=== PATIENT | female | born 1970 | race Caucasian/White ===

== ENCOUNTER 2021-10-27 09:47 | Day surgery (SDC) | payer OTHER, SELFPAY ==
--- NOTE | 2021-10-27 | PATH_ITS ---
[facility] Accession Number: [id number] . 01 Material submitted: . rectum - RECTUM BIOPSY . 02 Diagnosis: Rectum, Biopsy: Hyperplastic polyp. MRV 11/02/2021 1040 Local . 02 Electronically signed: . Modesta Sifuentes MD, Pathologist NPI- [id number] . 01 Gross description: . RECTUM BIOPSY: Received in formalin are 2 fragment(s) of ibanez, soft tissue measuring 0.2 x 0.2 x 0.1 cm to 0.2 x 0.1 x 0.1 cm submitted entirely in 1 cassette(s) /CPE 10/28/2021 0800 Local . 02 Pathologist provided ICD-10: K62.1 . 02 CPT . 730808 Performed at: 01 [facility] Cyt[facility] [address] [place] [address], [place], [place] [id number] MD Dany Winter MD Phone: [phone] Performed at: 02 [facility] [address] [place], [place] [id number] MD Modesta Sifuentes MD Phone: [phone]
[2021-10-27 10:08] VITALS: BP 157/100; PULSE 97; RESP 18; TEMP 36.3; O2SAT 99; BMI 41.5
[2021-10-27] MEDS: LACTATED RINGERS 1,000 ML 200 ML IV (10:22)
--- NOTE | 2021-10-27 10:56 | PM.HP.1 ---
History of Present Illness History of Present Illness Date Patient Seen: 10/27/21 Time Patient Seen: 10:56 Chief complaint: SDC Narrative: The patient presents for colorectal screening. She had a previous colonoscopy 20 years ago which was normal. No personal or family history of colon cancer. On further history denies any recent gastrointestinal symptoms. No nausea, vomiting, abdominal pain, loss of appetite, unexplained weight loss, change in bowel habits, diarrhea, constipation, melena, hematochezia, or bright red blood per rectum. Patient History Medical History Acid reflux Depression HTN (hypertension) Hx of fracture of tibia Hypercholesteremia Surgical History Hx of cystoscopy Hx of tonsillectomy Family & Social History Social History: household members spouse Tobacco & Substance use: Tobacco type cigars Smoking Status Former smoker alcohol intake current alcohol intake frequency a few times a week Substance Use Type marijuana Meds Home Medications and Allergies Home Medications Medication Instructions Recorded Confirmed Type hydrochlorothiazide 25 mg tablet 25 mg PO QDAY #0 04/13/17 10/27/21 History omeprazole 40 mg capsule,delayed 40 mg PO QAM #0 04/13/17 10/27/21 History release venlafaxine 75 mg capsule,extended 75 mg PO QDAY #0 04/13/17 10/27/21 History release 24 hr (Effexor XR) cholecalciferol (vitamin D3) 10 10 mcg PO DAILY 08/19/20 10/27/21 History mcg (400 unit) capsule losartan 25 mg tablet 25 mg PO DAILY 08/19/20 10/27/21 History multivitamin 1 tab PO DAILY 08/19/20 10/27/21 History vitamin B comp and C no.3 15 mg-10 1 cap PO DAILY 08/19/20 10/27/21 History mg-50 mg-5 mg-300 mg capsule (B Complex Plus Vitamin C) naproxen sodium 220 mg tablet 440 mg PO DAILY PRN 10/26/21 10/27/21 History (Aleve) Allergies Allergy/AdvReac Type Severity Reaction Status Date / Time meperidine [From DEMEROL] Allergy Mild Nausea Verified 10/27/21 10:01 Exam Vital Signs (past 8 hours): - 10/27/21 10:08 Temperature 97.4 F L Pulse Rate 97 H Respiratory Rate 18 Blood Pressure 157/100 H Pulse Oximetry 99 Oxygen Delivery Method Room Air Narrative Exam Narrative: GENERAL: Obese female in no apparent distress HEENT: No scleral icterus CV: Regular rate, no peripheral edema LUNGS: No increased work of breathing. Patient speaks in full sentences without oxygen support. ABDOMEN: Soft, non-tender, non-distended NEURO: Nonfocal, normal strength throughout, normal gait. SKIN: Warm and dry Assessment & Plan Assessment & Plan narrative: The patient requires colorectal screening and colonoscopy is recommended. Technical details were discussed. Risks, benefits, alternatives explained. Risks including but not limited to myocardial infarction, aspiration, bleeding, pain, missed lesion, incomplete examination, need for further radiographic studies, colonic perforation, and need for major abdominal surgery were discussed. All questions were answered to their satisfaction, and they are in agreement with this plan. Time Spent With Patient Critical Care time: I spent a total of [] minutes of critical care time on this patient's care today; this time is exclusive of procedural time.
[2021-10-27] MEDS: fentaNYL 250 MCG/5 ML INJ 150 MCG IV (11:05)
[2021-10-27] MEDS: MIDAZOLAM 5 MG/5 ML VIAL 8 MG IV (11:05)
--- NOTE | 2021-10-27 11:44 | P.OP.COLON_ITS ---
Operative Date/Time/Diagnoses Date of procedure: 10/27/21 Time of procedure: 11:44 Pre-op diagnosis: Screening Post-op diagnosis: same Procedure & Clinicians Study performed: Colonoscopy Same procedure as scheduled: Yes Indications: Screening Surgeon: Papo Santillan Procedure Notes Procedure in detail: Medications: Conscious sedation using 8mg IV midazolam and 150mcg IV of fentanyl The history and physical was performed/updated and the patient is ASA class is 2. The procedure was discussed in detail with the patient. Potential risks complications including infection, bleeding, missed diagnosis, perforation, need for surgery, and were explained. Their questions were answered and informed consent was obtained. Patient was brought to the procedure room and placed standard monitoring equipment. The patient's vital signs were monitored continuously throughout the entire procedure. Prior to starting time-out was performed. The patient was placed in the left lateral recumbent position. Procedural sedation was adminis tered. Examination began with a thorough inspection of the perianal area there was no evidence of fissures, fistulae, external hemorrhoids or cutaneous malignancy. The colonoscopy scope was then placed into the anal canal and was advanced to the cecum, which was identified by the ileocecal valve, the appendiceal orifice and the confluence of the taenia. The scope was then slowly withdrawn examining colon thoroughly in all directions, irrigating it of any residual stool. FINDINGS 1. Rectum 5 mm polyp removed biopsy forceps 2. Tortuous colon 3. Sigmoid diverticulosis The patient tolerated the procedure well. They will be discharged once criteria are met. The prep was of good/excellent quality. The withdrawl time was 9 minutes. The sedation time was 35 minutes. Specimen(s): other (Rectum) Complications: none Impression: Colonic polyp Post-procedure Recommendations: Will call with biopsy results Disposition: same day surgery
[2021-10-27 11:46] VITALS: BP 127/81; PULSE 79; RESP 13; TEMP 36.5; O2SAT 99
[2021-10-27 11:50] VITALS: BP 113/76; PULSE 79; RESP 13; O2SAT 97
[2021-10-27 11:55] VITALS: BP 131/80; PULSE 76; RESP 19; O2SAT 98
[2021-10-27 12:00] VITALS: BP 137/80; PULSE 80; RESP 14; O2SAT 97
[2021-10-27 12:04] VITALS: BP 122/75; PULSE 77; RESP 15; TEMP 36.7; O2SAT 99
== END 2021-10-27 12:19 | disposition home or self-care (01) ==
PROVIDERS: PCP Physician Assistant Medical; Referring Provider Surgery; Visit Provider Surgery
PROC: 0DJD8ZZ Inspection of Lower Intestinal Tract, Via Natural or Artificial Opening Endoscopic (ICD-10-PCS; CPT 45378; principal; 2021-10-27 10:30)
DX: Z12.11 Encounter for screening for malignant neoplasm of colon (principal); I10 Essential (primary) hypertension; K57.30 Diverticulosis of large intestine without perforation or abscess without bleeding; K62.1 Rectal polyp
CPT/HCPCS: 45380; 81025; 99152; 99153; J2250; J3010

== ENCOUNTER → 2022-03-12 07:37 | Outpatient (CLI) | payer OTHER, SELFPAY ==
--- NOTE | 2022-03-12 07:39 | DI.MRI.S_ITS ---
PROCEDURE: MR LUMBAR SPINE WO CON INDICATIONS: Pain in right hip TECHNIQUE: Noncontrast sagittal T1 spin echo and T2 fast echo, sagittal STIR, and T2 fast spin echo through the lumbar spine. In cases with scoliosis, additional coronal T2 fast spin echo may be performed. COMPARISON: [facility], CR, L-SPINE 2-3 VIEWS, 09/05/2008, 12:09. FINDINGS: Image quality: Excellent. Alignment and Curvature: There is normal bony alignment. Bone Marrow: Marrow is of normal overall signal. No acute vertebral body compression fractures. Spinal Cord: Conus medullaris terminates at the L1-L2 level. Visualized cord demonstrates normal signal and size. Paraspinous Soft Tissues: No paravertebral masses. T12-L1: No canal stenosis or foraminal stenosis. L1-L2: Minimal right paracentral disc protrusion. No canal stenosis or foraminal stenosis. Mild facet hypertrophy. L2-L3: Moderate broad-based right paracentral disc protrusion with small associated minimally superior disc extrusion, with disc material measuring approximately 1.3 x 1.4 x 0.6 cm. There is indentation on the thecal sac and impingement on right-sided nerve root structures, most notably the right L3 nerve root. There is bilateral facet arthropathy. There is moderate central canal stenosis. L3-L4: Very minimal disc bulge. Bilateral facet hypertrophy, right greater than left. No canal stenosis or foraminal stenosis. L4-L5: Minimal disc bulge. Prominent bilateral facet hypertrophy. Epidural lipomatosis. Mild canal stenosis. No foraminal stenosis. L5-S1: Prominent bilateral facet hypertrophy. Very minimal disc bulge. No canal stenosis or foraminal stenosis. IMPRESSION: 1. Underlying multilevel facet arthropathy. 2. The most significant findings are at L2-L3. There is a moderate broad-based right paracentral disc protrusion with associated small superior disc extrusion. There is impingement on right-sided nerve root structures, most notably the right L3 nerve root. There is moderate central canal stenosis. 3. There is mild canal stenosis at L4-L5. Dictated by: Shaheen Hook M.D. on 03/12/2022 at 9:27 Approved by: Shaheen Hook M.D. on 03/12/2022 at 9:34
== END ==
PROVIDERS: PCP Physician Assistant Medical; Referring Provider Orthopaedic Surgery; Visit Provider Orthopaedic Surgery
DX: M25.551 Pain in right hip (principal); M47.896 Other spondylosis, lumbar region; M48.061 Spinal stenosis, lumbar region without neurogenic claudication; M51.26 Other intervertebral disc displacement, lumbar region
CPT/HCPCS: 72148

== ENCOUNTER → 2022-06-22 11:33 | Outpatient (CLI) | payer OTHER, SELFPAY ==
--- NOTE | 2022-06-22 | DI.RAD.S_ITS ---
PROCEDURE: XR LUMBAR SPINE MIN 4V INDICATIONS: spondylolisthesis lumbar region TECHNIQUE: 5 views of the lumbar spine acquired, including flexion and extension views. COMPARISON: None. FINDINGS: Bones: 5 nonrib-bearing vertebrae are present. There is 4 millimeters of L2-L3 retrolisthesis. There is mild convex left thoracolumbar spine curvature. No vertebral body compression fractures. No suspicious bony lesions. Severe L2-L3 degenerative disc changes. Mild degenerative disc changes noted throughout the remainder of the lumbar spine. Moderate L3-L4, L4-L5 and L5-S1 facet arthropathy. Mild L2-L3 facet arthropathy. Soft tissues: Overlying bowel gas pattern is normal. No suspicious soft tissue calcifications. Flexion/extension: There is limited range of motion, with preserved normal alignment. IMPRESSION: 1. Multilevel degenerative disc disease. 2. Multilevel facet arthropathy. 3. No fracture. No acute osseous lesion. If symptoms and/or clinical suspicion for pathology persists, evaluation with MRI should be considered for further assessment. 4. Grade 1 L2-L3 degenerative spondylolisthesis. Dictated by: Keena Ortiz MD, PhD on 06/22/2022 at 13:33 Approved by: Keena Ortiz MD, PhD on 06/22/2022 at 13:35
== END ==
PROVIDERS: PCP Physician Assistant Medical; Referring Provider Orthopaedic Surgery Orthopaedic Surgery of the Spine; Visit Provider Orthopaedic Surgery Orthopaedic Surgery of the Spine
DX: M43.16 Spondylolisthesis, lumbar region (principal); M51.16 Intervertebral disc disorders with radiculopathy, lumbar region; M47.26 Other spondylosis with radiculopathy, lumbar region; M47.27 Other spondylosis with radiculopathy, lumbosacral region; M41.9 Scoliosis, unspecified
CPT/HCPCS: 72110

== ENCOUNTER 2022-09-06 10:44 | Inpatient (IN) | payer OTHER, SELFPAY ==
[2022-08-30 13:20] VITALS: BMI 40.3
[2022-09-06] VITALS (17 sets, daily range): BP systolic 90–143; BP diastolic 45–99; PULSE 89–108; RESP 12–108; TEMP 36–37.3; O2SAT 93–99; BMI 40.3
[2022-09-06 11:54] LABS: COVID19 -Nasal RAPID Negative (Negative)
--- NOTE | 2022-09-06 12:01 | PM.PREOP ---
Pre-operative Note COVID-19 COVID-19 status: Negative Result date/Date tested (Pos, Neg/Pending): 09/05/22 Criteria for continued procedure: Expected advancement of disease process, Possibility delay results in more complex future surgery or treatment, Increased loss of function, Continuing or worsening of significant or severe pain, Deterioration of the patient's condition or overall health and Delay expected to result in less-positive ultimate med/surg outcome Interval Note History & Physical reviewed/Exam performed by Physician: Yes Changes to H&P: No
[2022-09-06] MEDS: LACTATED RINGERS 1,000 ML 42 ML IV ×2 (12:19→13:26)
[2022-09-06] MEDS: CEFAZOLIN 3 GM IN 0.9 % NACL 3 GM/100 ML PLAST..BAG IV (12:30)
--- NOTE | 2022-09-06 13:00 | SUR.OPER ---
Prone on spine table, head in foam head support, padded chest and pelvic supports, gel pad at knees, lower legs supported by pillows; nipples, genitalia and toes free of pressure, arms secured on foam padded arm boards at <90 degrees abduction. Tape over blanket at thigh secured to table.
[2022-09-06] MEDS: BUPIVACAINE LIPOSOME 266 MG/20 ML VIAL INJ (13:08)
[2022-09-06] MEDS: BUPIVACAINE 0.25% (PF) 60 ML, EPINEPHrine 0.3 MG INJ (13:09)
--- NOTE | 2022-09-06 15:15 | DI.RAD.S_ITS ---
PROCEDURE: XR LUMBAR SPINE 2-3V INDICATIONS: L2-3 TLIF TECHNIQUE: 3 views of the lumbar spine were acquired. COMPARISON: [facility], [place], XR LUMBAR SPINE MIN 4V, 06/22/2022, 11:37. FINDINGS: Intraoperative images demonstrating presumed L2-3 fusion. There is good anatomic alignment. IMPRESSION: Intraoperative fusion as above. Dictated by: Audra Cedeño M.D. on 09/06/2022 at 16:57 Approved by: Audra Cedeño M.D. on 09/06/2022 at 16:58
--- NOTE | 2022-09-06 15:19 | PM.OP.1 ---
Operative Date/Time/Diagnoses Date of procedure: 09/06/22 Time of procedure: 13:00 Pre-op diagnosis: 1. L2-3 spinal stenosis 2. L2-3 disc herniation with radiculopathy Post-op diagnosis: same Procedure & Clinicians Procedure: 1. L2-3 Postero-lateral and posterior interbody fusion 2. L2-3 interbody cage placement. 3. L2-3 decompressive laminectomy with bilateral facetecomies 4. L2-3 Posterior non-segmental instrumentation 5. [place] of bone marrow from iliac crest 6. Utilization of microsurgical technique and operating microscope Same procedure as scheduled: Yes Indications: Patient has been having chronic back pain and worsening lumbar radiculopathy. Patient failed multiple conservative management with worsening pain weakness and numbness in her lower extremity. Patient has been having difficulty performing activity of daily living. After discussing risks benefits of treatment options, patient elected proceed with surgery. Surgeon: José Miguel Kebede Software Technician: Pranav Hoyt Click Yes if Unassisted: No Anesthesia Type: General Operative Notes Closure Type: primary Specimen(s): none sent Prosthetic devices, grafts, tissues, transplants, or devices: Globus revolve screws, Rise cage Estimated Blood Loss (mL): 100 Blood products transfused: none Procedure in detail: Patient was seen in the preoperative area. Risks and benefits of the surgery was discussed with the patient. Informed consent was obtained from the patient and placed in the chart. Surgical site was marked. Patient was taken to the operative room. General anesthesia was administered. Prophylactic antibiotic was given to the patient less than 30 min before the incision was made. Patient was placed into a prone position on the [place] table. Patient's back was then prepped and draped in the sterile fashion. Time-out was performed at this time. Using AP and lateral C-arm imaging the interval between L2-3 was identified and marked on patient's back. A 2 inch incision 2 in from midline was made on the right side first. The fascia was incised in line with skin incision. Globus MARS retractors was placed inside the incision and docked onto the L2 lamina. Using microsurgical technique and operating microscope, a L2 laminectomy and L2-3 facetectomy was performed using a Kerrison rongeur. The disc space at L2-3 was identified. And a total diskectomy was performed at L2-3 level. The endplates were decorticated using a rasp and shaver. The total diskectomy and decortication was performed at L2-3 level in order to to accomplish a L2-3 fusion. The local bone from the laminectomy and facetectomy was saved for local bone grafting. After the total diskectomy and decortication was completed, Trifecta bone graft material was combined with local bone that was harvested earlier. At this time, a separate skin is incision was made over the iliac crest. A Jamshidi needle was inserted into the iliac crest through a separate skin incision. 5 cc of bone marrow aspiration was obtained through the separate skin incision using a Jamshidi needle from the iliac crest. The bone marrow aspiration was combined with local bone and the Trifecta bone grafting material. The bone grafting material was placed into the L2-3 interbody space along with a expandable cage. The cage was expanded to its maximum height using the torque limiting screwdriver. At this time a mirror image incision was made on the left side. The fascia was incised in line with the skin incision. Globus MARS retractor was inserted and docked onto the L2-3 posterolateral gutter. Using the power drill, posterior-lateral decortication was performed at L2-3 level until bleeding cortical bone was identified. The remaining bone grafting material was placed into the L2-3 posterior lateral gutter he order to accomplish posterolateral fusion at the L2-3 level. Using the double C-arm technique, pedicle screws were placed into the L2-3 pedicles bilaterally. This was done by placing the Jamshidi needle into the pedicles, then placing the guidewires over the Jamshidi needle, and finally placing the cannulated screws over the guidewires bilaterally. After the pedicle screws were placed, 2 titanium rods was locked into the heads of the pedicle screws using locking caps and torque limiting screwdriver. After all the hardware was placed, and confirmed with AP and lateral C-arm imaging, the wound was then irrigated with sterile normal saline and packed with Ray-Tanya gauze for 3 min to accomplish hemostasis. After the gauze was removed the deep fascia was closed with #1 Vicryl suture. The subcutaneous layer was closed with 2-0 Vicryl. The skin was closed with skin rey. Patient tolerated the procedure well. There were no complications. Complications: none Post-operative Condition: stable Disposition: PACU Plan for aftercare: Admit to inpatient hospital
[2022-09-06] MEDS: HYDROCODONE/ACET 5/325 TABLET 1 TAB PO (15:58)
[2022-09-06] MEDS: LACTATED RINGERS 1,000 ML 40 ML IV (16:14)
[2022-09-06] MEDS: fentaNYL 100 MCG/2 ML INJ IV (16:16)
[2022-09-06] MEDS: SODIUM CHLORIDE 0.9% 1,000 ML 100 ML IV (17:07)
[2022-09-06] MEDS: OXYCODONE IR 5 MG TABLET 10 MG PO ×2 (17:43→23:03)
[2022-09-06] MEDS: CEFAZOLIN 2 GM/100 ML PREMIX 100 ML IV (19:29)
[2022-09-06] MEDS: VENLAFAXINE ER 75 MG CAP PO (20:16)
[2022-09-06] MEDS: hydrOXYzine pamoate 25 MG CAPSULE PO (20:16)
[2022-09-06] MEDS: SENNOSIDES 8.6 MG TABLET 17.2 MG PO (20:16)
[2022-09-06] MEDS: ACETAMINOPHEN 325 MG TABLET 650 MG PO (20:16)
[2022-09-06] MEDS: LOSARTAN 50 MG TABLET PO (20:16)
[2022-09-06] MEDS: DOCUSATE 100 MG CAPSULE PO (20:16)
[2022-09-07] VITALS: BP 106/52; PULSE 85; RESP 19; TEMP 37.1; O2SAT 94
--- NOTE | 2022-09-07 01:59 | PC.NURSE ---
Patient is alert and oriented. Breath sounds CTA but on oxygen at shift change with sat of 97% so have been weaning O2 and now on RA with sat of 95%. HRR. Denies nausea. BT present but has not yet passed flatus. Up to BSC with walker and 1 assist and voided; denies dysuria. Is able to turn herself in bed. Dressing to back intact but tape curled on left dressing so retaped; shadow drainage noted on both dressings. Has chronic weakness in right LE but is steady on feet. Complained of 4/10 pain and was medicated earlier with Tylenol + Vistaril and ice applied; later pain up to 7/10 and was medicated with oxycodone and now states pain is 3/10 and tolerable. Wearing bilateral calf SCD's. CMS intact bilaterally. Fall risk score is moderate but calls appropriately for assistance so bed alarm not activated.
[2022-09-07] MEDS: SODIUM CHLORIDE 0.9% 1,000 ML 100 ML IV (02:07)
[2022-09-07 04:00] VITALS: BP 90/51; PULSE 89; RESP 19; TEMP 36.8; O2SAT 98
[2022-09-07] MEDS: CEFAZOLIN 2 GM/100 ML PREMIX 100 ML IV (04:00)
[2022-09-07] MEDS: PANTOPRAZOLE DR 20 MG TABLET PO (05:55)
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
[2022-09-07 08:21] VITALS: BP 100/52; PULSE 88; RESP 16; TEMP 36.7; O2SAT 99
[2022-09-07] MEDS: OXYCODONE IR 5 MG TABLET 10 MG PO ×4 (08:25→20:50)
[2022-09-07] MEDS: MULTIVITAMIN 1 TABLET 1 TAB PO (10:00)
[2022-09-07] MEDS: ACETAMINOPHEN 325 MG TABLET 650 MG PO ×2 (10:00→17:26)
[2022-09-07] MEDS: VENLAFAXINE ER 75 MG CAP PO ×2 (10:00→20:49)
[2022-09-07] MEDS: CYCLOBENZAPRINE 10 MG TABLET PO (10:00)
[2022-09-07] MEDS: DOCUSATE 100 MG CAPSULE PO ×2 (10:00→20:49)
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
--- NOTE | 2022-09-07 13:27 | CM.DANOTE ---
DCP: Case received, EMR reviewed, pt is a 52 yo female who presented via pov and admitted to orthopedic surgeon team and underwent a pre-planned L2-3 P Postero-lateral and posterior interbody fusion. Pt has a Hx of L2-3 spinal stenosis' L2-3 disc herniation with radiculopathy. PCP: Katie Blair Insurance: [employer], Self Pay This CM met with pt in her room. Introduced self and role. Pt confirms that she lives with her on Tuesday, drives at baseline and does not use dme. She states that she will be setting up outpatient therapy with Ewelina Cortes Physical Therapist per surgeon instructions. Pt reports that her will be catching the 1st ferry in the am to pick her up from the hospital. Pt gave this CM permission to contact her to discuss transportation for the am. Pt confirms hhe will be on 8am ferry to [place]. Plan: Home with and outpatient therapy when medically stable. Amanda Levin RN Case Manager Discharge Planning/Care Management Advanced directive, confirm from FAMILY Start: 09/06/22 17:29 Freq: Q24H Status: Active Protocol: Document 09/06/22 17:29 [facility]W (Rec: 09/06/22 18:40 HCW [id number]) Advance Directive, confirm on record Time 18:39 Person contacted patient Copy received No CM Discharge Assessment Start: 09/07/22 13:22 Freq: Status: Active Protocol: Document 09/07/22 13:22 [facility] (Rec: 09/07/22 13:27 [id number]) Discharge Planning Assessment Assigned Agency Trainer Amanda Levin RN Case Manager Advance Directives? Yes: Unsure of whereabouts Advance Directives on File No History Provided By Patient,Significant Other, Medical Record Has Patient been admitted in last 30 No days? Prior Living Arrangements House Household Members spouse Type of transporation used prior to Drives own vehicle admit Willing to Return to Facility? No Independent with ADL's Yes Is patient alert and oriented? Yes Caregiver for Another No Patient/Family Preference OP PT Therapy Comment Pt reports that she is in the process of setting up an appointment with Ewelina Cortes Physical Therapist on Tuesday. Barriers to Discharge No Discharge Plan Home Community Services Physical Therapy Transportation Arrangement Referrals Initiated None needed Whiteboard Updated in Patient Room with Yes name and ext. # of Agency Trainer Review Status In Process Next Review Type Continued Stay Review Pre-Anesthesia Assessment Start: 08/30/22 13:20 Freq: Status: Complete Protocol: Document 08/30/22 13:20 [facility] (Rec: 08/30/22 14:32 [facility] [id number]) Pre-Anesthesia Assessment Preferred Name Qian Patient Information Reviewed Via Phone Assessment Assessment Completed With Patient Diagnostic Results BMP/CMP,CBC,EKG Comment Outside labs/EKG scanned Primary Care Provider Katie Blair Seen Specialist in Last 12 Months Yes Specialist Seen Orthopedist Primary Language Tajik Preferred Language Tajik Sales And Retail Management Recruiter Required No Height 167.64 cm Weight 113.398 kg Body Mass Index (BMI) 40.3 Hearing Ability Normal Visual Assist Glasses Dentition Type Teeth, Natural Present,Teeth, Missing Barriers to Learning None Hx Anesthesia Reactions No Hx Family Anesthesia Reaction No: Unknown, pt is adopted Hx Malignant Hyperthermia No Hx Blood Transfusions No Hx Blood Transfusion Reaction No Anesthesia Review Requested No Supervisor Frame Assembly No alcohol intake current alcohol intake frequency a few times a week Smoking Status Former smoker Tobacco type cigarettes how long ago did patient quit smoking 2009 Substance Use Type marijuana Comment Pt advised not to smoke marijuana 24 hours prior Pain Present Pain Reported Musculoskeletal Symptoms Abnormal Gait,Back Pain, Difficulty Walking,Muscle Weakness,Radiating Pain into Limb History of Falling (Recent or History of No ) Patient is completely paralyzed or No completely immobile Mental Status Oriented to own ability Is patient on oxygen? No Does patient have MORENO/SOB No Hx Sleep Apnea No CPAP/BIPAP use not prescribed Currently Taking a Beta Jerome No Can You Climb a Flight of Stairs Without Yes SOB Hx Chest Pain No Hx SOB No Hx Syncope or Dizziness No Anti-Coagulant Therapy No Has a Bleach Packer No Cardiac Testing No Hx Pacemaker/ICD No Pacemaker Rep Required? No Cardiac Clearance Received Not Applicable Diet Type At Home Regular Dysphagia No Gastrointestinal Symptoms Reflux Urinary Catheter Present No Hx Urinary Self Catheterization No Diabetes No HgbA1C 5.9 Date 08/09/22 Patient No Lactating No Hx Drug Resistant Organism No Presence of External or Internal Medical No Devices Have you had any close contact with No someone diagnosed with COVID-19? Received a COVID vaccine? Yes Received all doses? Yes Marital Status Lives With spouse Current Living Arrangements House Number of Floors (Floors) Two Floors Support System Spouse Does the Patient Have Assistance After Yes Surgery Patient Discharge Plan Description Return Home Comment Pt advised overnight length of stay per surgeon Feels Safe in Current Environment Yes Been Physically Hurt or Threatened By a No Person in Current Environment Do you have thoughts of harming yourself None or others? Are you currently considering suicide? No Do you have a plan to hurt yourself or No Plan others? Do You Have Any Spiritual Beliefs That No May Affect Your HC Choices? Do You Have Any Cultural Practices That No May Affect Your HC Choices? Comment Athiest Who Can We Speak to About Patient's Care Family, friends Identifying Code for Release of Patient Declines to issue Information Health Care Proxy/Next of Kin Keagan () Health Care Proxy Emergency Contact Name Keagan () Emergency Contact Advance Directives? Yes: Unsure of whereabouts Advance Directives on File No Requested Patient Bring Advanced Yes Directives DOS Power of Aerial Photogrammetrist Yes Power of Aerial Photogrammetrist Name Keagan () Power of Aerial Photogrammetrist PAC Instructions Durable medical equipment, Medications to take/avoid, Nasal antibiotic,No ETOH/ petroleum product on skin DOS, NPO,Post-op transportation,Pre -surgical wash,Sensory aids, Sturdy shoes/comfortable clothes,Do not bring valuables and remove jewelry
[2022-09-07 15:07] VITALS: BP 108/60; PULSE 79; RESP 17; TEMP 36.6; O2SAT 98
[2022-09-07 20:00] VITALS: BP 102/49; PULSE 90; RESP 18; TEMP 36.6; O2SAT 94
[2022-09-07] MEDS: SENNOSIDES 8.6 MG TABLET 17.2 MG PO (20:50)
[2022-09-07] MEDS: LOSARTAN 50 MG TABLET PO (20:50)
[2022-09-08] VITALS: BP 100/64; PULSE 98; RESP 16; TEMP 36.4; O2SAT 95
[2022-09-08] MEDS: OXYCODONE IR 5 MG TABLET 10 MG PO ×3 (01:20→09:37)
[2022-09-08] MEDS: CYCLOBENZAPRINE 10 MG TABLET PO (01:20)
--- NOTE | 2022-09-08 02:24 | PC.NURSE ---
Patient awake alert, able to ambulate with minimal assistance. Medicated for pain as needed and encouraged patient to use pain medication before pain becomes uncontrollable. Walking with walker and bearing wt. on both feet, with even stride.
[2022-09-08 04:00] VITALS: BP 105/55; PULSE 101; RESP 16; TEMP 36.3; O2SAT 92
[2022-09-08] MEDS: PANTOPRAZOLE DR 20 MG TABLET PO (06:29)
--- NOTE | 2022-09-08 08:16 | CM.DPC ---
DCP Discharge Home Per Ortho PA, pt medically stable to d/c home today and no identified barriers to discharge. Per PT/OT, recommending safe d/c home with spouse assist. Per RN, pt's pain controlled and ambulating with steady gait and no concerns noted. Plan: Patient to d/c home today via spouse POV and aiming for the [address] ferry back to [place] and outpt f/u with Ortho. No further SW needs at this time. [place]
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
--- NOTE | 2022-09-08 08:31 | PT.IPTN ---
Current Diagnoses Spondylolisthesis, lumbar region (09/06/22) Spinal stenosis, lumbar region with neurogenic claudication (09/06/22) Surgery Performed Operation Date: 09/06/22 12:15 Actual Procedures p L2-3 TLIF w. posterior instrumentation - José Miguel Kebede MD Physical Therapy Treatment Note M2 PT-IP Current Condition Start: 09/07/22 12:26 Freq: NEEDED Status: Active Protocol: Document 09/08/22 07:57 SP (Rec: 09/08/22 08:57 SP [id number]) Physical Therapy Current Condition Current Condition Evaluation Date 09/07/22 Treatment Diagnosis L2-3 TLIF, impaired gait and back pain Onset Date 09/06/22 M3 PT-IP Subjective Start: 09/07/22 12:26 Freq: NEEDED Status: Active Protocol: Document 09/08/22 07:57 SP (Rec: 09/08/22 08:57 SP [id number]) Subjective Physical Therapy Visit Type Type Initial Evaluation Visit Start Time 07:57 Visit Stop Time 08:31 Total Visit Minutes 34 Notes Vitals: L SL: BP 92/48 HR93 SaO2 93% on RA seated EOB: 108/71 HR 100 post mobility seated in chair: 78/49 HR 99 reclined in chair: 98/65 HR 88 Orthostatic w/symptoms: nausea , little sweaty, cramping in abdomen reported. Number of AVIONICS INTEGRATION ENGINEER Visits 1 Physical Therapy Visit Comments Patient Comments Pt willing to work with therapy. Patient Goals Discharge home when she is able with to assist her Therapy Pain Assessment Pain When Pain Assessed During Mobility Pain Present Pain Present Pain Reported Location Back Intensity 6 Description Aching,Cramping,Pressure, Tender,Tightness,With Movement Pain Behaviors Facial Grimacing,Guarding, Wincing Pain Management Techniques Distraction,Modification of Treatment,Re-positioning, Timing of Activity with Medications M4 PT-IP Mobility and Gait Start: 09/07/22 12:26 Freq: NEEDED Status: Active Protocol: Document 09/08/22 07:57 SP (Rec: 09/08/22 08:57 SP [id number]) PT-Bed Mobility Assessment Rolling Type of Rolling Log Rolling Level of Assist Standby Assistance Supine to Sit Supine to Sit Contact Guard Assistance, Minimal Assistance,1 Person Assistance,Bedrails Sit to Supine Sit to Supine Standby Assistance,Bedrails Scooting Scooting to Edge of Bed Independent PT-Transfer Assessment Sit to and From Stand Sit to and from Stand Standby Assistance,Contact Guard Assistance,1 Person Assistance,Use of Upper Extremities Equipment Transfer Assistive Device Gait Belt,Front Wheeled Walker Transfers Transfer Destination Chair,Toilet Transfer Technique pt ambulated w/ FWW Transfer Ability Level of Assist Standby Assistance,Contact Guard Assistance,1 Person Assistance,Use of Upper Extremities Comments Mobility Comments LR L SBA UEs use bed, L SL>sit use FWW and UEs on bed ( PTAstabilized opp side FWW) self mobilize support 10%A for trunk righting to sit, cued TA fac for back bracing support. Seated at EOB improved BP 108/71, nonsymptomatic. STS CG/SBA w/ FWW, cued wt shift awareness stabiltiy before mobilizing good/stable, gait to bathroom 12 ft, SBA slow descend to toilet cued use FWW and reach toilet hip hinge straight back SBA (doesn't have counter/ rail home to use), able void and self pericare. STS sBA w/ FWW use side rail L. Gait to sink approx 10 ft w/fWW SBA, washed hands sink unsupported SBA. PA entered room, noted little twist to speak, cued small pivot steps w/ FWW maintain precautions, steady. Gait to door>bench>chair approx 25 ft w/ fWW sBA. SBA sit in chair. Pt reported cramping in abdomen/ feeling nauseous/ little lightheaded, decreased BP 78/49. Reclined pt in chair, improved BP 98/65 . Notified FOREST PATHOLOGY TEACHER and provided inspirometer for breath support with education, pt reported little improvement. Pt had call light and all needs in reach. Pt is ok from mobility stand point to return home with spouse when medically cleared. Is aware if any further needs contact physician. Gait Assessment Gait Gait Assistance Required: Standby Assistance Distance (Feet) 45 Assistive Devices Assistive Device Gait Belt,Front Wheeled Walker Factors Limiting Gait Function Factors Limiting Gait Function Decreased Activity Tolerance, Decreased Strength,Limited Range of Motion,Pain Comments Gait Comments see mobility comments. Stair Climbing Assessment Comments Stair Climbing Comments already completed 09/07. PT-Balance Assessment Sitting Balance and Reactions Static Sitting Balance Ability Normal Dynamic Sitting Balance Ability Good Standing Balance and Reactions Static Standing Balance Ability Good Dynamic Standing Balance Ability Good Device Used FWW M5 PT-IP Objective Assessments Start: 09/07/22 12:26 Freq: NEEDED Status: Active Protocol: Document 09/07/22 10:40 DLM (Rec: 09/07/22 12:46 DLM [id number]) Orientation Orientation/Cognition Level of Alertness Alert Orientation Name,Age,Birthday,Month,Date, Year,Day of Week,Place, Situation Language Function Ability No Deficits Noted Safety Awareness Understands Safety Issues Memory Description No Deficits Noted Gross Range of Motion Upper Extremity ROM Assessment Within Functional Limits Lower Extremity ROM Assessment Within Functional Limits Strength Lower Extremity Strength Assessment Bilaterally Impaired Hip pain in back and right hip area limits strength Knee good tolerance for weight bearing Ankle DF 5/5 Comments Strength Comments trunk mobility limited by post -op precautions Coordination Assessment Gross Coordination Gross Coordination WNL Sensation Assessment Sensation Gross Sensation WNL Comments Sensation Comments she denies numbness/tingling Muscle Tone Muscle Tone WNL Yes M6 PT-IP Treatment Start: 09/07/22 12:26 Freq: NEEDED Status: Active Protocol: Document 09/08/22 07:57 SP (Rec: 09/08/22 08:57 SP [id number]) Physical Therapy Treatment Education Education Provided Precautions,Safety Other Treatments Other Treatment Performed spine precaution education provided including small steps during turning tospeak with others. M7 PT-IP Assessment and Plan Start: 09/07/22 12:26 Freq: NEEDED Status: Active Protocol: Document 09/08/22 07:57 SP (Rec: 09/08/22 08:57 SP [id number]) PT Summary Assessment and Plan Potential Rehabilitation Potential Good Status of Condition at Evaluation Evolving Summary Impairments Pain,ROM,Strength,Balance,Bed Mobility,Transfers,Gait, Activity Tolerance Progress Towards Goals Progressing Toward Goals,Slow Progress due to Pain,Slow Progress due to Medical Issues ,Slow Progress due to Activity Tolerance Assessment Summary Qian required 10%A to come to sitting from L SL due no HRs at home. SBA for all mobility with FWW. Became ortstatic with symptoms seated in chair after completed mobility improved once reclined. AVIONICS INTEGRATION ENGINEER notified nursing and PA. Pt reports increased back pain and abdominal cramping pain with mobility. Pt demonstrates safe mobility and gait to discharge home with her Spouse to assist when she is medically cleared. Pt is concerned about her pain management at this time. Her Spouse is not present for therapy today. No hands on family training needed since pt needs only stand by assist for mobility. Pt provided written education about her spine precautions that she can share with her Spouse. She is cleared by physical therapy to discharge home when she is medically stable. Goals Bed Mobility Goal Independent Transfer Goal Independent,Front Wheeled Walker Gait Goal Independent,Front Wheel Walker Gait Distance 250 feet Other Goals up/down 12 steps with wall support to simulate home with SBA Days to Meet Goals 2 Frequency of Treatment Frequency Of Treatment Once a Day Treatment Plan Physical Therapy Treatment Plan Bed Mobility Training,Transfer Training,Gait Training, Therapeutic Exercise,Post Op Education,Discharge Planning Other Recommendations and Next Treatment bed mob, gait w/ FWW, balance Focus activities. Precautions Lumbar Precautions Log Roll,No Twisting,Limit Bending,Lifting Restriction of 10 lbs,Gait Belt above Incisional Area Recommendations To Nursing Amount of Assist Needed Standby Assistance Discharge Recommendations PT Discharge Recommendations Home with Assistance Other Discharge Recommendations pt [place] current pain level Transportation Needs at Discharge Private Vehicle
[2022-09-08 08:35] VITALS: BP 98/65; PULSE 90; RESP 18; TEMP 36.1; O2SAT 97
[2022-09-08] MEDS: SODIUM CHLORIDE 0.9% 500 ML 1000 ML IV (08:42)
[2022-09-08 09:30] VITALS: BP 101/62; PULSE 91
[2022-09-08] MEDS: MULTIVITAMIN 1 TABLET 1 TAB PO (09:37)
[2022-09-08] MEDS: DOCUSATE 100 MG CAPSULE PO (09:37)
[2022-09-08] MEDS: ACETAMINOPHEN 325 MG TABLET 650 MG PO (09:37)
[2022-09-08] MEDS: VENLAFAXINE ER 75 MG CAP PO (09:38)
--- NOTE | 2022-09-08 10:54 | OT.IP.TRT ---
Current Diagnoses Spondylolisthesis, lumbar region (09/06/22) Spinal stenosis, lumbar region with neurogenic claudication (09/06/22) Surgery Performed Operation Date: 09/06/22 12:15 Actual Procedures p L2-3 TLIF w. posterior instrumentation - José Miguel Kebede MD Occupational Therapy Treatment Note M2 OT-IP Current Condition Start: 09/07/22 13:40 Freq: Status: Discharge Protocol: Document 09/07/22 11:30 [facility] (Rec: 09/07/22 13:57 [facility] [id number]) Occupational Therapy Current Condition Current Condition Evaluation Date 09/07/22 Treatment Diagnosis S/p L2-3 TLIF Diagnosis Onset Date 09/06/22 Post Operative Precautions Lumbar Precautions Log Roll,No Twisting,Limit Bending,Lifting Restriction of 10 lbs,Gait Belt above Incisional Area M3 OT- IP Subjective and Pain Start: 09/07/22 13:40 Freq: Status: Discharge Protocol: Document 09/08/22 15:01 [facility] (Rec: 09/08/22 15:11 [facility] [id number]) OT- Subjective Occupational Therapy Visit Type Type Treatment Note Visit Start Time 10:10 Visit Stop Time 10:54 Total Visit Minutes 44 Occupational Therapy Visit Comments Patient Comments Pt's present for caregiver training. Patient/Caregiver Goals To go home. OT Pain Assessment Pain When Pain Assessed At Rest Pain Present Pain Present Denied Pain M4 OT- IP ADL's Start: 09/07/22 13:40 Freq: Status: Discharge Protocol: Document 09/08/22 15:01 [facility] (Rec: 09/08/22 15:11 [facility] [id number]) OT ADL-Dressing General Eval Lower Body Dressing Ability Minimal Assistance Comments OT Dressing Comments Assist to help thread pant over the grippy socks. Pt present and will be able to assist pt for needs at home. OT ADL-Toileting General Evaluation Toileting Ability Standby Assistance,Moderate Assistance Areas Needing Assistance Perform Perineal Hygiene Comments OT Toileting Comments At this time pt not able to reach if having a bowel movement, her states will assist and has already ordered a toilet paper aid for the pt to use. OT ADL-Bathing Comments OT Bathing Comments Able to educated pt's on showering needs at home. M5 OT- IP IADL's Start: 09/07/22 13:40 Freq: Status: Discharge Protocol: Document 09/07/22 11:30 [facility] (Rec: 09/07/22 13:57 [facility] [id number]) OT-Instrumental Activities of Daily Living Deficits IADL Deficits Identified Deficits Home Safety Awareness Awareness of Need for Assistance at Home Good Awareness Ability to Problem Solve Emergency Able to Problem Solve Situations Home Safety Comments Pt's to be at home to assist pt for all her needs as needed. Meal Preparation Meal Preparation Caregiver Provides Assist Flaring Machine Operator Flaring Machine Operator Caregiver Provides Assist M6 OT- IP Functional Cognition Start: 09/07/22 13:40 Freq: Status: Discharge Protocol: Document 09/08/22 15:01 [facility] (Rec: 09/08/22 15:11 [facility] [id number]) Cognitive Factors Limiting Selfcare Function Cognitive Comments Cognitive Assessment Comments Intact M7 OT- IP Mobility and Balance Start: 09/07/22 13:40 Freq: Status: Discharge Protocol: Document 09/08/22 15:01 [facility] (Rec: 09/08/22 15:11 [facility] [id number]) OT- Bed Mobility Assessment Supine to Sit Supine to Sit Assist Standby Assistance Sit to Supine Sit to Supine Assist Standby Assistance OT-Transfer Assessment Sit to and From Stand Sit to and from Stand Standby Assistance Transfers Transfer Ability Standby Assistance Technique Transfer Destination Bed,Chair,Toilet Devices Transfer Assistive Devices Gait Belt,Front Wheeled Walker Comments Mobility Comments Pt's able to safely assist pt for all bed mobility and transfer needs. Educated to hold the FWW at the side of the bed so pt able to do log rolling more easily. OT- Balance Assessment Sitting Balance and Reactions Static Sitting Balance Ability Normal Dynamic Sitting Balance Ability Good Standing Balance and Reactions Static Standing Balance Ability Good Dynamic Standing Balance Ability Good M9 OT- IP Assessment and Plan Start: 09/07/22 13:40 Freq: Status: Discharge Protocol: Document 09/08/22 15:01 [facility] (Rec: 09/08/22 15:11 [facility] [id number]) OT Summary Assessment and Plan Potential Rehabilitation Potential Excellent Analytic Complexity at Evaluation Low Summary OT Impairments Pain,Balance,Functional Mobility,Toileting,Bathing, Shower Transfers Progress Towards Goals Progressing Toward Goals Assessment Summary Pt's present for caregiver training and able to safely assist pt for all bed mobility, transfers, ADL's and will be home to assist the pt . Pt looking to go home today , BP were 106/73 supine, 114/ 58 sit, and 112/78 standing. Discharge Recommendations OT Discharge Recommendations Home with Assistance Home Equipment Needs LB dressing equipment Transportation Needs at Discharge Private Vehicle
--- NOTE | 2022-09-08 11:36 | PC.NURSE ---
dressing changed prior to dc. paper work and dc instructions given. IV removed.
== END 2022-09-08 11:37 | disposition home or self-care (01) | DRG 455 ==
PROVIDERS: Admitting Provider Orthopaedic Surgery Orthopaedic Surgery of the Spine; PCP Physician Assistant Medical; Referring Provider Orthopaedic Surgery Orthopaedic Surgery of the Spine; Visit Provider Orthopaedic Surgery Orthopaedic Surgery of the Spine
PROC: 0SG00AJ Fusion of Lumbar Vertebral Joint with Interbody Fusion Device, Posterior Approach, Anterior Column, Open Approach (ICD-10-PCS; principal; 2022-09-06 12:15)
DX: M48.061 Spinal stenosis, lumbar region without neurogenic claudication (principal); M51.26 Other intervertebral disc displacement, lumbar region; M43.16 Spondylolisthesis, lumbar region; M54.16 Radiculopathy, lumbar region; F32.A Depression, unspecified; I10 Essential (primary) hypertension; K21.9 Gastro-esophageal reflux disease without esophagitis; Z20.822 Contact with and (suspected) exposure to COVID-19; Z87.891 Personal history of nicotine dependence
CPT/HCPCS: 72100; 76000; 82962; 87635; 97116; 97162; 97165; 97530; 97535; C9803; C9290; J0171; J0330; J0690; J1100; J1170; J2250; J2405; J2704; J3010